=== PATIENT | male | born 1995 | race Caucasian/White ===

== ENCOUNTER 2018-09-02 14:50 | Emergency (ER) | payer SELFPAY ==
[2018-09-02] MEDS ORDERED: Bacitracin Oint 1 GM U/D Packet TOP ONE (15:33)
--- NOTE | 2018-09-02 15:40 | EDM.PDOC ---
ED HPI GENERAL MEDICAL PROBLEM - General Chief Complaint: Laceration Stated Complaint: FOREHEAD/HEAD INJURY Time Seen by Provider: 09/02/18 15:14 Source of Information: Reports: Patient History Limitations: Reports: No Limitations - History of Present Illness INITIAL COMMENTS - FREE TEXT/NARRATIVE: HISTORY AND PHYSICAL: History of present illness: Patient is a 23-year-old male who presents to the ED today with a laceration on his right eyebrow. He states he was carrying a cabinet around 11:00 today when he fell forward and hit his eyebrow on the end of the cabinet. He states he is up-to-date with his tetanus and had one a year ago. Patient states the cut had a small amount of bleeding but he did Steri-Strip it right away. He states that it continues to "ooze." Patient denies loss of consciousness when this happened. He states he has pain where he hit but no headache. He denies any visual changes, dizziness, or presyncope. Review of systems: As per history of present illness and below otherwise all systems reviewed and negative. Past medical history: As per history of present illness and as reviewed below otherwise noncontributory. Surgical history: As per history of present illness and as reviewed below otherwise noncontributory. Social history: See social history for further information Family history: As per history of present illness and as reviewed below otherwise noncontributory. Physical exam: General: Patient is alert, oriented, and in no acute distress. He is sitting comfortably on exam table. HEENT: Patient does have a 3 cm laceration over his right eyebrow previously Steri-Stripped (per patient). Nontender with palpation, normocephalic, pupils equal and reactive bilaterally, negative for conjunctival pallor or scleral icterus, mucous membranes moist, TMs normal bilaterally, throat clear, neck supple, nontender, trachea midline. No drooling or trismus noted. No meningeal signs. No hot potato voice noted. Lungs: Clear to auscultation, breath sounds equal bilaterally, chest nontender. Heart: S1S2, regular rate and rhythm without overt murmur Abdomen: Soft, nondistended, nontender. Negative for masses or hepatosplenomegaly. Negative for costovertebral tenderness. Pelvis: Stable nontender. Genitourinary: Deferred. Rectal: Deferred. Skin: 3cm laceration above right eyebrow. Otherwise skin is intact, warm, dry. No lesions or rashes noted. Extremities: Atraumatic, moves allnegative for cords or calf pain. Neurovascular unremarkable. Neuro: Awake, alert, oriented. Cranial nerves II through XII unremarkable. Cerebellum unremarkable. Motor and sensory unremarkable throughout. Exam nonfocal. Notes: Area was sterilized using Betadine prior to numbing area with 1% lidocaine. Usual and customary procedures were used for suture placement 5-0 chromic gut used , #5 interrupted sutures. Patient tolerated well. Supportive care measures were reviewed and discussed. Voices understanding and is agreeable to plan of care. Denies any further questions or concerns at this time. Diagnostics: None Therapeutics: Wound care, 1% lidocaine Prescription: None Impression: Facial laceration Plan: 1. Keep the area clean and dry. Continue to monitor for signs of infection. Avoid placing sutures in water for long periods of time. Your sutures should dissolve, if they are not dissolved by 7-10 days please return for suture removal. 2. Tylenol and/or ibuprofen as needed for pain management. 3. Please follow-up with your primary care provider in the next 1-2 days. Return to the ED as needed and as discussed. Definitive disposition and diagnosis as appropriate pending reevaluation and review of above. Head Pain Score (Numeric/FACES): 2 - Related Data Allergies Allergy/AdvReac Type Severity Reaction Status Date / Time No Known Allergies Allergy Verified 09/02/18 15:46 Home Meds: Home Meds . [No Known Home Meds] 09/02/18 [History] ED ROS GENERAL - Review of Systems Review Of Systems: ROS reveals no pertinent complaints other than HPI. ED EXAM, SKIN/RASH Exam: See Below (See dictation) ED SKIN PROCEDURES - Laceration/Wound Repair Right Upper Forehead Lac/Wound length In cm: 3 Appearance: Superficial Distal NVT: Neuro & Vascular Intact, No Tendon Injury Anesthetic Type: Local Local Anesthesia - Lidocaine (Xylocaine): 1% Plain Local Anesthetic Volume: 5cc Skin Prep: Chlorhexidine (Hibiciens), Providone-Iodine (Betadine) Exploration/Debridement/Repair: Wound Explored Closed with: Sutures Suture Size: other (5-0 chromic gut) # of Sutures: 5 Suture Type: Interrupted Course - Vital Signs Last Recorded V/S: Last Vital Signs Temp 97.9 F 09/02/18 15:46 Pulse 71 09/02/18 15:46 Resp 16 09/02/18 15:46 BP 149/83 H 09/02/18 15:46 Pulse Ox 97 09/02/18 15:46 - Orders/Labs/Meds Meds: Medications Discontinued Medications Generic Name Dose Route Start Last Admin Trade Name Elia PRN Reason Stop Dose Admin Bacitracin 1 dose 09/02/18 15:33 Bacitracin Oint 1 Gm TOP 09/02/18 15:34 ONETIME ONE Lidocaine HCl 5 ml 09/02/18 15:33 Xylocaine-Mpf 1% INJECT 09/02/18 15:34 ONETIME ONE Departure - Departure Time of Disposition: 16:09 Disposition: Home, Self-Care 01 Clinical Impression: Facial laceration Qualifiers: Encounter type: initial encounter Qualified Code(s): S01.81XA - Laceration without foreign body of other part of head, initial encounter - Discharge Information Instructions: Facial Laceration, [id number] Referrals: PCP,None [Primary Care Provider] - Forms: ED Department Discharge Additional Instructions: The following information is given to patients seen in the emergency department who are being discharged to home. This information is to outline your options for follow-up care. We provide all patients seen in our emergency department with a follow-up referral. The need for follow-up, as well as the timing and circumstances, are variable depending upon the specifics of your emergency department visit. If you don't have a primary care physician on staff, we will provide you with a referral. We always advise you to contact your personal physician following an emergency department visit to inform them of the circumstance of the visit and for follow-up with them and/or the need for any referrals to a consulting specialist. The emergency department will also refer you to a specialist when appropriate. This referral assures that you have the opportunity for follow-up care with a specialist. All of these measure are taken in an effort to provide you with optimal care, which includes your follow-up. Under all circumstances we always encourage you to contact your private physician who remains a resource for coordinating your care. When calling for follow-up care, please make the office aware that this follow-up is from your recent emergency room visit. If for any reason you are refused follow-up, please contact the [facility] Emergency Department at and asked to speak to the emergency department charge nurse. [facility] [address] [place] [address] [address] [facility] - Plastic Surgery Professional Building [address], [address] [place] [address] 1. Keep the area clean and dry. Continue to monitor for signs of infection. Avoid placing sutures in water for long periods of time (tubs, hot tubs, etc..) . Your sutures should dissolve, if they are not dissolved by 7-10 days please return for suture removal. 2. Tylenol and/or ibuprofen as needed for pain management. 3. Please follow-up with your primary care provider in the next 1-2 days. Return to the ED as needed and as discussed.
== END 2018-09-02 16:30 | disposition home or self-care (01) ==
LOC: MW.ED 14:50
DX: S01.81XA Laceration without foreign body of other part of head, initial encounter (principal); W01.198A Fall on same level from slipping, tripping and stumbling with subsequent striking against other object, initial encounter
CPT/HCPCS: 12013; 99282; J2001